=== PATIENT | male | born 1950 | race Caucasian/White ===

== ENCOUNTER 2022-05-25 23:37 | Emergency (ER) | payer OTHER ==
[~2022-05-25] VITALS: Ht 165.1 cm; Wt 86.2 kg
[2022-05-26] MEDS ORDERED: MAGNESIUM HYDROXIDE 30 ML LIQUID UDC PO ONE (00:15)
[2022-05-26] MEDS ORDERED: HYDROMORPHONE 1 MG/1 ML DISP.SYRIN IV ONE (00:15)
[2022-05-26] MEDS ORDERED: IV NORMAL SALINE 500 ML BAG IV ONE (00:15)
[2022-05-26] MEDS ORDERED: ONDANSETRON 4 MG/2 ML VIAL IV ONE (00:15)
[2022-05-26] MEDS ORDERED: ONDANSETRON 4 MG/2 ML VIAL ONE (00:19)
[2022-05-26] MEDS ORDERED: HYDROMORPHONE 1 MG/1 ML DISP.SYRIN ONE (00:20)
[2022-05-26 00:26] LABS: HEMATOCRIT 49.8 % (36.7-47.1); MEAN CORPUSCULAR HEMOGLOBIN 31.4 uug (23.8-33.4); PLATELET COUNT (AUTO) 221 K/uL (152-348)
[2022-05-26 00:29] LABS: CREATININE 1.1 mg/dL (0.6-1.3); POTASSIUM 4.1 mmol/L (3.5-5.1)
[2022-05-26 00:35] LABS: BILIRUBIN,DIRECT 0.1 mg/dL (0.0-0.2); BILIRUBIN,TOTAL 0.4 mg/dL (0.2-1.0); TOTAL PROTEIN, SERUM 8.3 g/dL (6.4-8.2)
[2022-05-26] MEDS ORDERED: IOHEXOL 350 100 ML INFUS..BTL ONE (01:22)
[2022-05-26] MEDS ORDERED: IV NORMAL SALINE 250 ML IV ONE (01:22)
[2022-05-26] MEDS ORDERED: SWABABLE VALVE TRANSFER SET EA MC ONE (01:22)
--- NOTE | 2022-05-26 02:45 | NUR ---
PATIENT STATES "I FEEL BETTER NOW."
[2022-05-26 02:55] LABS: *BILIRUBIN,URIN NEGATIVE (NEGATIVE); *CLARITY,URINE CLEAR (CLEAR); *COLOR,URINE YELLOW (YELLOW); *KETONES,URINE NEGATIVE (NEGATIVE); *UROBILINOGEN,URINE 0.2 E.U./dl (NORMAL); LEUKOCYTE ESTERASE ,URINE NEGATIVE (NEGATIVE); NITRITE, URINE NEGATIVE (NEGATIVE); UGLUCOSE NEGATIVE (NEGATIVE)
[2022-05-26 03:01] LABS: *BLOOD, URINE TRACE (NEGATIVE)
[2022-05-26] MEDS ORDERED: KETOROLAC TROMETHAMINE 30 MG INJ ONE (03:12)
[2022-05-26] MEDS ORDERED: KETOROLAC TROMETHAMINE 30 MG INJ IVP ONE (03:15)
[2022-05-26] MEDS ORDERED: HYDR-4209 PO (03:17)
[2022-05-26] MEDS ORDERED: ONDA4TAB5 PO (03:17)
[2022-05-26] MEDS ORDERED: IBUP-1490 PO (03:17)
--- NOTE | 2022-05-26 03:32 | NUR ---
IV removed. Catheter intact and site benign. Pressure and 4x4 gauze applied to site. No bleeding noted.
--- NOTE | 2022-05-26 03:40 | NUR ---
Patient discharged to home in stable condition WITH FAMILY TAKING PATIENT HOME. Written and verbal after care instructions given. Patient verbalizes understanding of instructions. Stressed follow up or return to ER for worsening s/s.
[2022-05-26 04:28] LABS: BACTERIA,URINE NONE SEEN /HPF (NONE SEEN); RBC,URINE 0-3 /HPF (0-3); SQUAMOUS EPITHELIAL CELL,UR FEW /HPF (NONE SEEN); WBC,URINE 0-3 /HPF (0-3)
[2022-05-26 04:55] VITALS: BP 155/80
== END 2022-05-26 03:50 | disposition home or self-care (01) ==
LOC: ER 23:45
DX: K80.20 Calculus of gallbladder without cholecystitis without obstruction (principal); R07.9 Chest pain, unspecified; M54.9 Dorsalgia, unspecified; Z20.822 Contact with and (suspected) exposure to COVID-19; E78.5 Hyperlipidemia, unspecified; I25.10 Atherosclerotic heart disease of native coronary artery without angina pectoris; Z95.5 Presence of coronary angioplasty implant and graft; Z88.0 Allergy status to penicillin; R94.31 Abnormal electrocardiogram [ECG] [EKG]; R03.0 Elevated blood-pressure reading, without diagnosis of hypertension
CPT/HCPCS: 99285; 71260; 96374; 76705; 96375; 96361; 87426; 80076; 80048; 81001; 83690; 85025; 85610; 84484 ×2; 36415; 93005; 74177; J1885; J2405; Q9967; J1170; J7040; A4663